=== PATIENT | male | born 1980 | race Caucasian/White ===

== ENCOUNTER 2022-06-22 09:57 | Emergency (ER) | payer OTHER ==
[2022-06-22] MEDS ORDERED: IPRATROPIUM-ALBUTEROL 3 ML NEB INHALATION STA (11:57)
--- NOTE | 2022-06-22 12:10 | ED ---
URI HPI - General Chief Complaint: Upper Respiratory Infection Stated Complaint: sob Time Seen by Provider: 06/22/22 11:30 Source: patient, RN notes reviewed Mode of arrival: ambulatory Limitations: no limitations - History of Present Illness Initial Comments: 42-year-old male presents emergency Department chief complaint of cough congestion shortness breath symptoms started 1 week ago. Patient does have history asthma patient's been using Symbicort inhaler. Patient has not seen her primary physician several years. Patient states his cough was initially productive but has subsided. No reported fever he does admit that he felt hot and cold. Patient denies any nausea vomiting diarrhea constipation no sick contacts. - Related Data Previous Rx's Medication Instructions Recorded Albuterol Sulfate [Proair Hfa] 1 - 2 puff INHALATION Q4HR PRN 06/22/22 #8.5 gm Azithromycin [Zithromax Z Pack] 0 tab PO DIRECTED #6 tab 06/22/22 predniSONE 50 mg PO DAILY #5 tab 06/22/22 Allergies Allergy/AdvReac Type Severity Reaction Status Date / Time No Known Allergies Allergy Verified 06/22/22 11:27 Review of Systems ROS Statement: Those systems with pertinent positive or pertinent negative responses have been documented in the HPI. ROS Other: All systems not noted in ROS Statement are negative. Past Medical History Past Medical History: Asthma History of Any Multi-Drug Resistant Organisms: None Reported Past Surgical History: No Surgical Hx Reported Past Psychological History: Anxiety Smoking Status: Current every day smoker Past Alcohol Use History: None Reported Past Drug Use History: Marijuana General Exam Limitations: no limitations General appearance: alert, in no apparent distress Head exam: Present: atraumatic, normocephalic, normal inspection Eye exam: Present: normal appearance, PERRL, EOMI. Absent: scleral icterus, conjunctival injection, periorbital swelling ENT exam: Present: normal exam, normal oropharynx, mucous membranes moist Neck exam: Present: normal inspection, full ROM. Absent: tenderness, meningism us, lymphadenopathy Respiratory exam: Present: wheezes, decreased breath sounds. Absent: normal lung sounds bilaterally, respiratory distress, rales, rhonchi, stridor Cardiovascular Exam: Present: regular rate, normal rhythm, normal heart sounds. Absent: systolic murmur, diastolic murmur, rubs, gallop, clicks Course Vital Signs 06/22/22 06/22/22 06/22/22 11:24 12:08 12:21 Temperature 98 F Pulse Rate 78 84 88 Respiratory 22 18 18 Rate Blood Pressure 188/88 O2 Sat by Pulse 100 Oximetry Medical Decision Making - Medical Decision Making 42-year-old presented for cough congestion shortness breath. Patient abnormal wheezing on exam patient refused x-ray I did have a long discussion with the patient regarding possible misdiagnosis, concerns for getting x-ray patient again refuses understands risk. Patient we discharged after breathing treatment on steroids, and Vioxx from inhaler. Patient advised well patient. - Lab Data Lab Results 06/22/22 Range/Units 11:43 Coronavirus (PCR) Not Detected (Not Detectd) Disposition Clinical Impression: Asthmatic bronchitis Disposition: HOME SELF-CARE Condition: Stable Instructions (If sedation given, give patient instructions): Upper Respiratory Infection (ED) Additional Instructions: Please return to the Emergency Department if symptoms worsen or any other concerns. Prescriptions: predniSONE 50 mg PO DAILY #5 tab Albuterol Sulfate [Proair Hfa] 1 - 2 puff INHALATION Q4HR PRN #8.5 gm PRN Reason: difficulty in breathing Azithromycin [Zithromax Z Pack] 0 tab PO DIRECTED #6 tab Is patient prescribed a controlled substance at d/c from ED?: No Referrals: None,Stated [Primary Care Provider] - 1-2 days Parish Robbins MD [STAFF PHYSICIAN] - 1-2 days Time of Disposition: 13:11
[2022-06-22 13:25] VITALS: BP 138/74; PULSE 70; RESP 16; TEMP 98.2
== END 2022-06-22 13:24 | disposition home or self-care (01) ==
LOC: EC 09:57
DX: J45.909 Unspecified asthma, uncomplicated (principal); Z20.822 Contact with and (suspected) exposure to COVID-19; F17.200 Nicotine dependence, unspecified, uncomplicated; Z79.51 Long term (current) use of inhaled steroids
CPT/HCPCS: 87635; 94640; 99284